=== PATIENT | female | born 1990 | race Caucasian/White ===

== ENCOUNTER 2022-05-21 15:15 | Outpatient (CLI) | payer BC, SELFPAY ==
[2022-05-22 16:53] LABS: Strep B DNA Probe POSITIVE (Negative)
== END 2022-05-21 15:16 | disposition home or self-care (01) ==
LOC: NFLDREF 15:16
PROVIDERS: Visit Provider Obstetrics & Gynecology
DX: Z34.93 Encounter for supervision of normal pregnancy, unspecified, third trimester (principal); Z3A.36 36 weeks gestation of pregnancy
CPT/HCPCS: 87081; 87653

== ENCOUNTER 2022-06-07 03:24 | Inpatient (IN) | payer BC, SELFPAY ==
[2022-06-07] VITALS (46 sets, daily range): BP systolic 89–137; BP diastolic 56–93; PULSE 67–96; RESP 16–20; TEMP 36.6–37.3; O2SAT 94–98; BMI 31.6
[2022-06-07] MEDS: AMPICILLIN 2 GM in 0.9 % SODIUM CHLORIDE Mini-bag 100 ML IVPB (04:00)
[2022-06-07] MEDS: LIDOCAINE 2% (PF) 5 ML VIAL EPIDURAL (04:07)
[2022-06-07] MEDS: ROPIVACAINE 0.2% 100 ml 100 ML 12 MG EPIDURAL (04:09)
--- NOTE | 2022-06-07 04:13 | P.ANBPRC_ITS ---
PFSH PFS Social History Smoking Status: Never smoker Meds Home Medications and Allergies Home Medications Medication Instructions Recorded Confirmed Type prenat.vits,cherry,cwy-gmua-yyinh 1 tab PO QDAY 05/07/22 06/07/22 History sertraline 50 mg tablet 50 mg PO DAILY 05/07/22 06/07/22 History Allergies Allergy/AdvReac Type Severity Reaction Status Date / Time No Known Allergies Allergy Unverified 06/07/22 03:40 Results Vital Signs Vital Signs: Last Vital Signs Temp 99.1 F 06/07/22 03:20 Pulse 76 06/07/22 04:11 Resp 16 06/07/22 03:20 BP 127/78 06/07/22 04:11 Pulse Ox 97 06/07/22 04:12 Weight: 125.191 kg Height: 160.02 cm Anesthesia Procedures Epidural Insertion Patient Location: OB Reason for Block: primary anesthetic Patient Position: sitting Performed By: Bhavin Tapia Preanesthetic Checklist: IV checked, risks and benefits discussed, surgical consent, monitors and equipment checked, pre-op evaluation, timeout performed and anesthesia consent Prep: chlorhexidine gluconate Monitoring: blood pressure monitoring, cardiac monitor technician, continuous pulse oximetry and heart rate Approach: midline Vertebral Space: lumbar (1-5) Needle Type: Tuohy needle Injection Technique: continuous catheter (catheter) Needle gauge: 17 Needle Length (cm): 10 cm Needle Insertion Depth (cm): 5 Catheter Gauge: 19 Catheter Type: multi-orifice Catheter at skin depth (cm): 10 Test Dose Result: negative and lidocaine 1.5% with epinephrine 1 to 200,000 Intrathecal Patient Location: OB Start Time: 03:50 Stop Time: 04:20 Start Date: 06/07/22 Stop Date: 06/07/22 Reason for Block: primary anesthetic Patient Position: sitting Performed By: Bhavin Tapia Preanesthetic Checklist: IV checked, site marked, risks and benefits discussed, surgical consent, monitors and equipment checked, pre-op evaluation, timeout performed and anesthesia consent Prep: patient draped Monitoring: blood pressure monitoring, continuous pulse oximetry and heart rate Approach: midline Vertebral Space: lumbar (1-5) Needle Type: Cristy Injection Technique: continuous catheter Needle gauge: 17 Needle Length (cm): 10 cm Test Dose Result: negative and lidocaine 1.5% with epinephrine 1 to 200,000
[2022-06-07] MEDS: LACTATED RINGERS 1000 ML 1,000 ML 125 ML IV ×2 (04:16→06:35)
--- NOTE | 2022-06-07 04:24 | W.PM.LDBA ---
Subjective History of Present Illness Time Seen by Provider: 05:01 Date Seen: 06/07/22 Narrative: Patient is being admitted to Labor and Delivery for SROM/Labor. She is a 32 year old at 38.4 weeks gestation. Her full history and physical was dictated by Jhon Sarmiento on 05/28/2022. Please see this for details. Pt states SROM, large amt of clear fluid at 1:55am. Contractions started at that time. Currently resting comfortably with epidural. Partner and mom at bedside for support. Blood Type: A positive 1. Hx of abnormal pap in 2019, ASCUS, HPV neg NEEDS Pap PP, with cotesting 2. Increased anxiety and irritability at NOB. Started on Zoloft. Declined therapy 3. 2 small JANIS 4. GBS positive. Ampicillin in labor. OB - H&P: Exam Physical Exam: Vital signs: Temp Pulse Resp BP Pulse Ox 99.1 F 75 16 127/80 98 06/07/22 03:20 06/07/22 04:19 06/07/22 03:20 06/07/22 04:19 06/07/22 04:22 Constitutional: Constitutional: no acute distress and cooperative Routine HEENT Exam: Head: Present normocephalic Routine Neck Exam: Neck: Present full ROM Routine Respiratory Exam: Respiratory: Present CTA bilaterally Routine Cardiovascular Exam: Cardiovascular: RRR Detailed Abdominal Exam: Comments: Gravid, non-tender Detailed Labor and Delivery Exam: Patient Gravid: yes Dilation (cm): 5 (5-6cm per RN) Effacement (%): 90 (per RN) Contraction intensity: Mild (Irregular ~6 min apart) Fetus (Single): Station: -1 Amniotic Membrane Status: SROM (@ 1:55am (x3.5 hours)) Amniotic Membrane Fluid Description: Clear Heart Rate Baseline: 120 Monitor Accelerations: Present Monitor Decelerations: None Pathology Secretary Variability: Average (6-10) (Moderate) Routine Extremities Exam: Extremities: Present full ROM; Absent pedal edema Routine Back/Spine/Pelvis Exam: Back/Spine: full ROM Routine Skin Exam: Present intact Routine Neurological Exam: Present alert and oriented X3 Routine Psychiatric Exam: Present normal affect OB - Problem Based A/P Additional Plan (1) : Status: Acute (2) SROM (spontaneous rupture of membranes): Status: Acute Plan Assessment @ 38w 4d SROM @ 1:55am (3.5 hours) GBS Positive Labor Uncomplicated Plan 1. Admit to Labor & Delivery 2. Candidate for analgesia of choice. Epidural placed at pt request. 3. IV access, r/t epidural desire/GBS positive 4. Continuous monitoring r/t epidural 5. Antibiotic prophylaxis in labor r/t GBS positive per protocol 6. Expectant management 7. Continue to monitor for labor progress, consider Pitocin if needed 8. Anticipate progress to NVD Delivery/Labor/Induction Plan Plan: expectant management
[2022-06-07 04:32] LABS: SARS PCR* Negative SARS-CoV-2 (Negative)
[2022-06-07] MEDS: ONDANSETRON 2 MG/ML inj 4 MG IV (05:57)
[2022-06-07] MEDS: OXYTOCIN 30 unit/500 ML in NS 30 UNIT/500 ML BAG 300 UNIT IVPB (07:19)
--- NOTE | 2022-06-07 07:44 | PM.OBPNVD1 ---
OB - PN: Obj Exam Physical Exam: Vital signs: Temp Pulse Resp BP Pulse Ox 99.1 F 79 16 125/89 97 06/07/22 03:20 06/07/22 07:34 06/07/22 03:20 06/07/22 07:34 06/07/22 04:32 Constitutional: Constitutional: no acute distress Routine HEENT Exam: Head: Present normal inspection OB - PN: Obj Data Labs Labs: Laboratory Results - last 24 hr 06/07/22 03:30 SARS-CoV-2 (PCR) Negative SARS-CoV-2 OB - PN: A/P Vaginal Delivery Assessment and Plan (1) : Status: Acute (2) SROM (spontaneous rupture of membranes): Status: Acute
--- NOTE | 2022-06-07 08:04 | PM.OBPRCVD ---
Procedure Delivery date: 06/07/22 Procedure Done: Global Intrapartal Events: None Delivery monitor: external FHT and external uterine Route of delivery: Episiotomy description: None Laceration description: None Estimated blood loss (mL): 50 (QBL) Anesthesia type: Epidural Narrative: Pt admitted in active labor and SROM, large amount of clear fluid. Received epidural and continued to labor comfortably. Called to pt room for increased pressure and urge to push. Labor analgesia: epidural Pitocin: PP only for AMTSL Labor onset: 314 Complete: 655 Pushin Delivery 0718 heart tones in labor were 125, mod variability w/ accels. No decels noted. At 0718 a viable female delivered in OA presentation over intact perineum via spontaneous vaginal delivery. Infant placed on maternal abdomen. Cord was clamped and cut after a 5+ minute delay. Terminal mec noted. Infant weight pending. 7 at 1 minute and 8 at 5 minutes. Shoulder dystocia: no. Nuchal: No. Infant delivered by G. Brannon Placenta delivered spontaneously and complete at 0740 with a [address] Ball who assumed care at shift . Mother and infant were stable after delivery. Lacerations: none per Susan Ball QBL: 50 Sponge and needle count correct. Gender: Female presentation: vertex Placental Delivery Description: Spontaneous Cord Description: 3 Vessels OB Vag Delivery Procedures Additional Procedures Laceration Repair: No
[2022-06-07] MEDS: IBUPROFEN 600 MG TABLET PO ×2 (12:43→18:45)
[2022-06-08 02:16] VITALS: BP 115/74; PULSE 71; RESP 20; TEMP 36.7; O2SAT 96
[2022-06-08 07:28] LABS: Hemoglobin* 10.8 gm/dL (12.0-16.0)
[2022-06-08 08:40] VITALS: BP 118/81; PULSE 79; RESP 16; TEMP 36.7; O2SAT 97
[2022-06-08] MEDS: DOCUSATE SODIUM 100 MG CAPSULE PO (08:57)
--- NOTE | 2022-06-08 14:56 | PM.OBPNVD1 ---
OB - PN:Subj Subjective Time Seen by Provider: 14:56 Date Seen: 06/08/22 Interval history: 32yo para 2002 PPD1 after of vigorous female at 38w4d GA. Light lochia, no clots. Voiding freely. Mood stable on Zoloft 50mg QD. Daughter with tight latch. bilingual sales consultant assisted yesterday. OB - PN: Obj Exam Physical Exam: Vital signs: Temp Pulse Resp BP Pulse Ox 98.1 F 79 16 118/81 97 06/08/22 08:40 06/08/22 08:40 06/08/22 08:40 06/08/22 08:40 06/08/22 08:40 Constitutional: Constitutional: no acute distress and cooperative Routine HEENT Exam: Head: Present normal inspection Routine Neck Exam: Neck: Present full ROM Routine Respiratory Exam: Comments: Normal respiratory efforts. No cough. Routine Extremities Exam: Extremities: Present full ROM and normal inspection Routine Skin Exam: Skin: Present normal color and warm Routine Neurological Exam: Neurological: Present alert, CN II-XII intact and normal speech Routine Psychiatric Exam: Psychiatric: Present normal affect and normal thought process OB - PN: Obj Data Labs Labs: Laboratory Results - last 24 hr 06/08/22 07:13 Hgb 10.8 L OB - PN: A/P Vaginal Delivery Assessment and Plan (1) Lactating mother: Status: Acute Assessment and Plan: Difficult to get to latch deeply, causing pain and skin irritation. Limit duration of frequent feedings. Use topical ointment. Continue to work with quality compliance consultant. Plan Routine recovery after spontaneous vaginal . GBS positive, received one dose of ampicillin. Plan Plan: routine care Comments: Likely home tomorrow. [place] provider to assess GBS risk.
[2022-06-08 16:32] VITALS: BP 121/80; PULSE 71; RESP 16; TEMP 37.1; O2SAT 96
[2022-06-09 00:06] VITALS: BP 126/81; PULSE 70; RESP 16; O2SAT 97
[2022-06-09 03:02] VITALS: BP 116/78; PULSE 81; RESP 16; TEMP 36.6; O2SAT 96
[2022-06-09 09:30] VITALS: BP 126/85; PULSE 85; RESP 16; TEMP 36.4; O2SAT 96
[2022-06-09] MEDS: LANOLIN CREAM 1 APPLIC TOPICAL (09:56)
[2022-06-09] MEDS: DOCUSATE SODIUM 100 MG CAPSULE PO (09:58)
--- NOTE | 2022-06-09 11:56 | PM.OBDSVD1 ---
DS: Providers Provider Time Seen by Provider: 11:56 Date Seen: 06/09/22 Date of admission: 06/07/22 03:24 Primary care physician: Eliel Provider Generic Admitting Clinician: Racquel Castillo CNM Attending Physician on discharge: Lorenzo Ball MD Date of Discharge: 06/09/22 DS: Diagnosis Discharge Diagnosis (1) Normal labor and delivery: Status: Acute Problem details: No perineal laceration. Lochia decreasing. (2) Lactating mother: Status: Acute (3) Anxiety: Status: Acute Problem details: mood stable on Zoloft 50mg QD Exam Const: Vital Signs, click to edit/add: Vital Signs - 24 hr 06/08/22 16:32 06/09/22 00:06 06/09/22 03:02 Temperature 98.7 F 97.9 F Pulse Rate [Pulse Oximeter] 71 70 81 Respiratory Rate 16 16 16 Blood Pressure [Ri ght Arm] 121/80 126/81 116/78 Pulse Oximetry 96 97 96 06/09/22 09:30 Temperature 97.6 F Pulse Rate [Pulse Oximeter] 85 Respiratory Rate 16 Blood Pressure [Ri ght Arm] 126/85 Pulse Oximetry 96 Documenting provider has reviewed patient's vital signs: yes Common normals: no apparent distress General appearance: cooperative and comfortable Chest: Other: Areolar skin irritation/abrasion, without bleeding. Resp: Common normals: normal respiratory effort Cardio: Common normals: regular rate Rate: regular rate Extremity: Common normals: normal to inspection and full ROM Neuro: Common normals: CN's II-XII intact bilaterally Psych: Common normals: mental status grossly normal, thought process normal, cooperative and affect normal Thought process: normal thought process OB - DS: Summary Hospital Course Hospital Course: Meena is a 32 year old now para 2001 who was admitted to the Center on 06/07/22 for SROM. After epidural placement, she had an uncomplicated vaginal delivery of a viable female at 38w4d GA. Lochia decreasing. No analgesics needed. Bladder and bowel function normal. Breast feeding difficult, will continue to work with credit consultant. Peripartum Data Infant delivery method: Vaginal Laceration description: None complications: none Infant Gender: Female Infant Discharge Plan: Home Time Spent with Patient Time attestation: Total time spent providing and/or coordinating discharge services: Discharge Plan Discharge Disposition: Home, Self-Care Date of Admission: 06/07/22 03:24 Attending Provider on Discharge: Lorenzo Ball Primary Care Provider: Eliel Crooks Provider Condition: Stable Anticipated Discharge Date/Time: 06/09/22 12:10 Discharge Medications: New acetaminophen 500 mg Tablet 1,000 mg PO Q6H PRNQty: 90 0RF ibuprofen 600 mg Tablet 600 mg PO Q6H PRNQty: 1 0RF Lanolin (HPA) 100 % Cream 1 applic topical Q1H PRNQty: 1 0RF Continued prenat.vits,cherry,hey-hfxe-kylms Tablet 1 tab PO QDAY 0RF sertraline 50 mg tablet 50 mg PO DAILY 0RF Discharge Orders: Discharge Order (Routine); Ordered 06/09/22 Ordered By: Lorenzo Ball Patient Education: OB Vaginal/Breast Feeding Activity Level: Activity as Tolerated Discharge Diet: High Fiber Follow Up Appointments: Eliel Crooks Provider [Primary Care Provider] - Racquel Castillo CNM [Certified Nurse Operations Coordinator] - 07/22/22 Forms: MyHealth Info Instructions
== END 2022-06-09 13:15 | disposition home or self-care (01) | DRG 560 ==
LOC: OB OUT 03:24 → OB 03:24
PROVIDERS: Admitting Provider Advanced Practice Midwife; Visit Provider Advanced Practice Midwife
DX: O99.824 Streptococcus B carrier state complicating childbirth (principal); O99.344 Other mental disorders complicating childbirth; F41.9 Anxiety disorder, unspecified; Z3A.38 38 weeks gestation of pregnancy; Z37.0 Single live birth
CPT/HCPCS: 01967; 36415; 84112; 85018; 87635; A9270; J0290; J2405; J2795; J7120

== ENCOUNTER 2022-06-10 15:02 | Outpatient (CLI) | payer BC, SELFPAY ==
--- NOTE | 2022-06-12 16:46 | W.PM.LAC.MC ---
Consult Note - Mom Date of Visit Date of visit: 06/12/22 information security consultant: Kellie Drew Patient's Information Phone number: [phone] : 2 Para: 2 Allergies No Known Allergies Allergy (Verified 06/07/22 06:09) Mother's Medical History: Medical History (Updated 06/12/22 @ 00:02 by ) Normal labor and delivery Delivery Information Delivery type: Vaginal Weeks Gestation: 38.4 Gestational Age: AGA Weight: 2.865 kg Discharge Weight: 2.719 kg Baby's Information Baby's Age at Visit: 3 days Baby's Provider or Clinic: Dr. Orodnez Jaundice: No Reason for Consult Reason for Consult: difficulty latching, questions re: pump Past Experience Past Experience: No (had so much pain nursing her first child, she ended up exclusively pumping) Current Frequency of Day Feedings: every 2 - 3 hours around the clock Both Breasts: No (baby is usually satisfied with one side) Suck: strong Latch: fairly wide Length of Time: 10 - 15 minutes Pumping Pumping: Yes (has pumped about 4 times) Quantity Pumped: .5 oz total once only, no milk expressed the other times Supplementing EMB Supplement: No Formula Supplement: Yes (FOC gave baby 1 oz formula once overnight) Baby Elimination Number of Wet Diapers a Day: 4 - 5 Number of BM a Day: 2 - 3; green Breast/Nipple Condition Engorgement: Yes Maternal Nipple Condition - Left: Common Nipple Maternal Nipple Condition - Right: Common Nipple Sore Nipples: No Onsite Pre-Feed weight: 2.766 kg Post-Feed weight: 2.804 kg Milk Transferred (mL): 38 Pre-Nursing Left Nipple: Within Normal Limits Pre-Nursing Right Nipple: Within Normal Limits Post-Nursing Left Nipple: Within Normal Limits Post-Nursing Right Nipple: Within Normal Limits Assessments/Interventions Assessments/Interventions: Met with mom and this now 3 day old ex- term AGA baby for consult.? Mom had a lot of pain with nursing with her first child and ended up switching to exclusive pumping after only a few days.? When she was seen in the hospital on 06/07 she was starting to develop a blister on the right nipple.? She reports today that the blister has healed and there's no nipple pain with nursing, but she's very uncomfortable now that her milk began to come in on 06/09.? She's nursing every 2 - 3 hours, usually only on one side.? She's pumped with her new Florinda pump about four times, but has only gotten about .5 oz total once so she's wondering if she's using it correctly.? Baby was given about 30 ml formula last night as she was inconsolable.? Breasts are WNL- symmetrical with rounded lower quadrants.? Nipples are everted and don't flatten or retract with compression.? The blister has healed but there's an area to the center of the nipple with some skin breakdown. Baby has gained 59 grams since D/C yesterday and is only 3% below BW at DOL 3.? Her palate is WNL, upper frenulum is a little tight when flanging her upper lip.? She has a strong suck on a finger; her tongue extends past the gum line and has good lateral movement.? Her lower frenulum wasn't viewed.? Per POC she has equal ROM when moving her extremities or turning her head.? There is some molding of her skull but mom denies any caput/cephalohematoma. Mom attempted to latch baby to the right side in the football hold but baby kept slipping off.? We discussed her breasts may be too full for baby to get a good latch.? She was shown hand expression and with assistance expressed 5 ml.? She then put baby back on the breast and baby was able to maintain her latch.? She nursed for about 10 minutes- the latch looked wide and mom was comfortable.? When she came off mom's nipple was not misshapen.? Mom hand expressed from the left, but only got a few drops.? She attempted to put baby on the left side but she was too sleepy.? She transferred 38 ml.? We then reviewed mom's Florinda pump and this time she was able to comfortably express about 1.5 oz. Plan: 1. Continue to nurse baby every 2 - 3 hours, offering both sides each time.? Suggested she soften her breasts to help baby get a deep latch with hand expression, a Haakaa, or her Florinda pump.? If she sees skin breakdown, encouraged her to rinse her nipples and then apply colostrum, letting them air dry. 2. If she's still uncomfortable/breasts feel full after baby finishes, or if baby only nurses from one side, suggested she use any of the ideas above to express the milk until she's comfortable (not to empty). 3. No medical need to give baby supplementation, suggested POC wait until baby is about 4 weeks old to re-introduce the bottle. 4. F/U with PCP for a 2 week WCC and in prn.
== END 2022-06-10 15:03 | disposition home or self-care (01) ==
PROVIDERS: Visit Provider Advanced Practice Midwife
DX: Z39.1 Encounter for care and examination of lactating mother (principal)
CPT/HCPCS: 99211